=== PATIENT | female | born 1960 | race African-American/Black ===

== ENCOUNTER 2017-09-26 07:51 | Emergency (ER) | payer BC ==
[2017-09-26] MEDS ORDERED: Ketorolac Tromethamine 30 MG/ML VIAL ONE (08:39)
[2017-09-26] MEDS ORDERED: Dexamethasone 10 MG/ML VIAL ONE (08:42)
--- NOTE | 2017-09-26 09:11 | CT ---
CT HEAD WITHOUT IV CONTRAST: DATE: 09/26/17. HISTORY: CT head without IV contrast. DATE: 09/26/17. HISTORY: Headache. The patient states feels pressure behind eyes. COMPARISON: 08/30/08. FINDINGS: A few low-density areas are seen within the periventricular white matter which are nonspecific but li wilma reflective of chronic small-vessel ischemic changes. There is no evidence of an acute cortical infarction, hemorrhage, mass effect, or midline shift. The ventricular system is normal in size, sha pe, and position. There has been no significant interval change compared to the prior study in 2007. IMPRESSION: No acute intracranial abnormalities are demonstrated. POS: [facility]
== END 2017-09-26 09:39 | disposition home or self-care (01) ==
LOC: ERS 07:51
DX: R51 Headache (principal); I10 Essential (primary) hypertension; G47.9 Sleep disorder, unspecified; Z79.899 Other long term (current) drug therapy
CPT/HCPCS: 70450; J1100; J1885

== ENCOUNTER 2017-12-08 08:29 | Emergency (ER) | payer BC, OTHER ==
--- NOTE | 2017-12-08 10:26 | RAD ---
PA AND LATERAL VIEWS OF CHEST: D ate: 12/08/17 HISTORY: Cough. FINDINGS: The heart size is normal. The aorta is tortuous. The lungs are expanded without focal areas of consol idation, pneumothorax, or pleural effusions. No acute osseous abnormalities are seen. IMPRESSION: No radiographic evidence of acute cardiopulmonary process. POS: [facility]
== END 2017-12-08 10:24 | disposition home or self-care (01) ==
LOC: ERS 08:29
DX: J06.9 Acute upper respiratory infection, unspecified (principal); E78.5 Hyperlipidemia, unspecified; I10 Essential (primary) hypertension; Z79.899 Other long term (current) drug therapy
CPT/HCPCS: 71046

== ENCOUNTER 2018-02-12 15:30 | Outpatient (CLI) | payer OTHER | END 2018-02-12 15:31 | disposition home or self-care (01) | LOC: BICMAMMO 15:30 | PROVIDERS: ATTEND Nurse Practitioner Family | DX: Z12.31 Encounter for screening mammogram for malignant neoplasm of breast (principal) | CPT/HCPCS: 77063; 77067 ==

== ENCOUNTER 2019-12-08 11:16 | Outpatient (CLI) | payer OTHER ==
--- NOTE | 2019-12-08 15:01 | ULT ---
RIGHT BREAST ULTRASOUND: HISTORY: Abnormal mammogram of 11/18/2019. FINDINGS: Correlation is made with the mammogram of today and 11/23/2019. Sonographic evaluation of the 10 o'clock position of the right breast demonstrates a few lymph nodes, the largest measuring 1.2 x 0.4 x 0.7 cm 10 cm from the nipple. Also noted at the 10 o'clock position 6 cm from the nipple is a well-circumscribed nonshadowing cysti c mass with internal echoes, likely complex. IMPRESSION: BIRADS category 3 - probably benign findings. Followup right diagnostic mammogram and ultrasound are recommended in 6 months. POS: OFF
--- NOTE | 2019-12-09 12:41 | MMO ---
Right Breast MAMMO Unilat Diag DDI RT+TRENA. CLINICAL HISTORY: Patient is 59 years old and is seen for additional evaluation requested at current screening. The patient has no family history of breast cancer. The patient has no personal history of cancer. VIEWS: The views performed were: right craniocaudal spot compression with tomosynthesis; right mediolateral oblique spot compression with tomosynthesis; and right mediolateral with tomosynthesis. FILMS COMPARED: The present examination has been compared to prior imaging studies performed at [facility] on 11/23/2019, and at [facility] on 05/01/2016, 02/12/2018 and 12/08/2019. This study has been interpreted with the assistance of computer-aided detection. MAMMOGRAM FINDINGS: The breast is heterogeneously dense, which could obscure a lesion on mammography. Additional views were performed. Nodule persists. US performed. IMPRESSION: FINDING IN THE RIGHT BREAST IS PROBABLY BENIGN. FOLLOW-UP IN 6 MONTHS IS RECOMMENDED. THE RESULTS OF THIS EXAM WERE SENT TO THE PATIENT. ACR BI-RADS Category 3 - Probably benign finding - short interval follow-up suggested. [facility] will notify the patient of the need for additional imaging services. MAMMOGRAPHY NOTE: 1. A negative mammogram report should not delay a biopsy if a dominant of clinically suspicious mass is present. 2. Approximately 10% to 15% of breast cancers are not detected by mammography. 3. Adenosis and dense breasts may obscure an underlying neoplasm. Reported by: SONIA HARTMANN MD Electonically Signed: [id number]
== END 2019-12-08 11:17 | disposition home or self-care (01) ==
LOC: BICMAMMO 11:16
PROVIDERS: ATTEND Obstetrics & Gynecology
DX: N63.10 Unspecified lump in the right breast, unspecified quadrant (principal)
CPT/HCPCS: G0279

== ENCOUNTER 2020-09-13 08:01 | Outpatient (CLI) | payer OTHER ==
--- NOTE | 2020-09-13 08:55 | MMO ---
Right Breast MAMMO Unilat Diag DDI RT+TRENA. CLINICAL HISTORY: Patient is 60 years old and is seen for diagnostic exam. The patient has no family history of breast cancer. The patient has no personal history of cancer. VIEWS: The views performed were: right craniocaudal with tomosynthesis; right mediolateral oblique with tomosynthesis; and right mediolateral with tomosynthesis. FILMS COMPARED: The present examination has been compared to prior imaging studies performed at [facility] on 11/23/2019, and at [facility] on 12/08/2019 and 09/13/2020. This study has been interpreted with the assistance of computer-aided detection. MAMMOGRAM FINDINGS: The breast is heterogeneously dense, which could obscure a lesion on mammography. There is a round mass measuring 11 millimeters with circumscribed margins seen in the upper-outer region of the right breast. The mass was shown to be a cyst on ultrasound. There are no suspicious masses, suspicious calcifications, or new areas of architectural distortion. IMPRESSION: THERE IS NO MAMMOGRAPHIC EVIDENCE OF MALIGNANCY. A ROUTINE FOLLOW-UP MAMMOGRAM IN 1 YEAR IS RECOMMENDED. THE RESULTS OF THIS EXAM WERE SENT TO THE PATIENT. ACR BI-RADS Category 2 - Benign finding MAMMOGRAPHY NOTE: 1. A negative mammogram report should not delay a biopsy if a dominant of clinically suspicious mass is present. 2. Approximately 10% to 15% of breast cancers are not detected by mammography. 3. Adenosis and dense breasts may obscure an underlying neoplasm. Reported by: RAJESH FRAZIER MD Electonically Signed: [id number]
--- NOTE | 2020-09-13 08:56 | ULT ---
US Breast Limited Rt: 09/13/2020 12:00 AM CLINICAL INDICATION: Asymmetry in the right breast on prior mammography at the 10:00 position. COMPARISON: Mammogram 09/13/2020, 12/08/2019 and ultrasound 12/08/2019 TECHNIQUE: Multiplanar grayscale and color Doppler images were obtained of the breast. FINDINGS: There is a well-circumscribed anechoic cyst at the 10:00 position of the right breast measuring 1.1 c m in greatest dimension. This corresponds to the mammographic abnormality. No suspicious mass is seen. No suspicious shadowing is seen. IMPRESSION: BI-RADS Category 2-benign findings. Annual screening mammography is recommended.
== END 2020-09-13 08:02 | disposition home or self-care (01) ==
LOC: BICMAMMO 08:01
PROVIDERS: ATTEND Physician Assistant
DX: R92.2 Inconclusive mammogram (principal)
CPT/HCPCS: G0279

== ENCOUNTER 2020-10-24 09:54 | Emergency (ER) | payer OTHER ==
[2020-10-24 15:45] LABS: SARS-CoV-2 MS2 Positive; SARS-CoV-2 N Gene Negative; SARS-CoV-2 S Gene Negative; SARS-CoV-2 by NAA Not Detected (NotDetected); SARS-CoV-2 orf1ab Negative
== END 2020-10-24 10:26 | disposition home or self-care (01) ==
LOC: ERS 09:54
DX: R50.9 Fever, unspecified (principal); J02.9 Acute pharyngitis, unspecified; R52 Pain, unspecified; Z20.828 Contact with and (suspected) exposure to other viral communicable diseases; E78.5 Hyperlipidemia, unspecified; E78.00 Pure hypercholesterolemia, unspecified; I10 Essential (primary) hypertension; Z79.899 Other long term (current) drug therapy
CPT/HCPCS: 87635; 99283; U0003

== ENCOUNTER 2022-05-28 14:05 | Outpatient (CLI) | payer BC | END 2022-05-28 14:06 | disposition home or self-care (01) | LOC: BICRAD 14:05 | PROVIDERS: ATTEND Nurse Practitioner Family | DX: R05.8 Other specified cough (principal) | CPT/HCPCS: 71046 ==

== ENCOUNTER 2022-08-13 11:13 | Outpatient (CLI) | payer BC | END 2022-08-13 11:14 | disposition home or self-care (01) | LOC: BICRAD 11:13 | PROVIDERS: ATTEND Family Medicine | DX: J18.9 Pneumonia, unspecified organism (principal) | CPT/HCPCS: 71046 ==

== ENCOUNTER 2023-07-03 09:05 | Emergency (ER) | payer BC ==
[2023-07-03] MEDS ORDERED: Ondansetron PF 4 MG/2 ML Vial ONE (09:30)
[2023-07-03 09:40] LABS: #Basophils 0.1 thou/uL (0.0-0.2); #Eosinphils 0.2 thou/uL (0.0-0.7); #Monocytes 0.4 thou/uL (0.11-0.59); #Neutrophils 5.5 thou/uL (1.40-6.50); %Basophils 0.8 % (0.0-1.0); %Eosinophils 2.1 % (0.0-10.0); %Lymphocytes 28.4 % (21.0-51.0); %Monocytes 4.1 % (0.0-10.0); %Neutrophils 63.7 % (42.0-75.0); Hematocrit 38.1 % (36.0-47.0); Hemoglobin 12.7 g/dL (12.0-16.0); Mean Corpuscular HGB CONC 33.3 g/dL (32.0-36.0); Mean Corpuscular Hemoglobin 31.3 pg (27.0-31.0); Mean Corpuscular Volume 93.8 fl (78.0-98.0); Mean Platelet Volume 10.6 fL (7.4-10.4); Platelet Count 351 10x3/uL (130-400); Red Blood Cell (RBC) Count 4.06 mill/uL (4.20-5.40); White Blood Cell (WBC) Count 8.6 10x3/uL (4.8-10.8)
[2023-07-03] MEDS ORDERED: Acetaminophen 500 MG TAB ONE (09:58)
[2023-07-03 10:05] LABS: ALT (SGPT) 20 U/L (8-55); AST (SGOT) 34 U/L (5-34); Albumin 4.3 g/dL (3.4-4.8); Alkaline Phosphatase 128 U/L (40-110); Anion Gap 10 mmol/L (10-20); BUN (Urea Nitrogen) 15 mg/dL (9.8-20.1); Bilirubin, Total 0.6 mg/dL (0.2-1.2); Calc. Creatinine Clearance 0 mL/min (70-130); Calcium 9.6 mg/dL (7.8-10.44); Carbon Dioxide 26 mmol/L (23-31); Chloride 105 mmol/L (98-107); Estimated GFR 85; Globulin 4.6 g/dL (2.4-3.5); Glucose 142 mg/dL (80-115); Lipase 16 U/L (8-78); Magnesium 2.1 mg/dL (1.6-2.6); Potassium 4.3 mmol/L (3.5-5.1); Protein, Total 8.9 g/dL (5.8-8.1); Sodium 137 mmol/L (136-145)
[2023-07-03 10:06] LABS: Bacteria/HPF None Seen HPF (None Seen); Bilirubin Negative (Negative); Blood, Urine Negative (Negative); CAUTI Indications for Culture Dysuria,urgency,freq; Clarity Clear (Clear); Glucose, Urine (Dipstick) Normal (Negative); Ketone, Urine Negative (Negative); Leukocyte Negative Leu/uL (Negative); Nitrite Negative (Negative); Protein, Urine (Dipstick) 10 mg/dL (Neg-Trace); RBC/HPF None Seen HPF (0-3); Specific Gravity, Urine 1.022 (1.002-1.036); Squamous Epithelial 0-3 HPF (0-3); Urobilinogen Normal mg/dL (Less than 2); WBC/HPF 0-3 HPF (0-3); pH, Urine 5.5 (5.0-9.0)
[2023-07-03 10:12] LABS: Urine Culture Reflex No No
[2023-07-03 12:52] LABS: Lactic Acid 1.1 mmol/L (0.5-2.2)
== END 2023-07-03 13:36 | disposition home or self-care (01) ==
LOC: ERS 09:05
DX: R10.9 Unspecified abdominal pain (principal); E78.5 Hyperlipidemia, unspecified; I10 Essential (primary) hypertension; Z79.899 Other long term (current) drug therapy
CPT/HCPCS: 36415; 74176; 80053; 81001; 83605; 83690; 83735; 85025; 93005; 96361; 96374; J2405